=== PATIENT | female | born 1970 | race Caucasian/White ===

== ENCOUNTER 2021-04-08 11:14 | Inpatient (IN) | payer MEDICARE ==
[~2021-04-08] VITALS: Ht 157.5 cm; Wt 96.4 kg
[~2021-04-08 11:14] MED LIST: AMOXICILLIN875 MG PO; EXCEDRIN EXTRA1 EACH PO; MELOXICAM15 MG PO; METRONIDAZOLE500 MG PO; NORCO 5-325 TA1 EACH PO; NORVASC5 MG PO; TESSALON PERLE100 MG PO; VENTOLIN HFA IN18 GM INH
[2021-04-08 13:27] LABS: BASOPHIL 0.1 % (0-2); EOSINOPHIL 0.1 % (0-5); HCT 41.8 % (37.0-47.0); LYMPHOCYTE 31.9 % (15-48); MCH 30.4 pg (25.0-31.0); MCHC 33.5 g/dL (32.0-36.0); MCV 90.7 fL (78.0-100.0); MONOCYTE 7.6 % (0-12); MPV 9.2 fL (6.0-9.5); NEUTROPHIL 59.8 % (41-80); NRBC 0; PLT 334 K/uL (150-400); RBC 4.61 M/uL (4.20-5.40); WBC 7.9 K/uL (4.0-10.5)
[2021-04-08 13:45] LABS: BUN/CREAT RATIO (CALC) 20.3 RATIO; CREATININE 1.18 mg/dL (0.51-0.95); POTASSIUM 3.9 mmol/L (3.5-5.1)
[2021-04-09 07:36] LABS: BASOPHIL 0 % (0-2); EOSINOPHIL 0 % (0-5); HCT 40.2 % (37.0-47.0); HGB 13.3 g/dl (12.5-16.0); LYMPHOCYTE 30.2 % (15-48); MCHC 33.1 g/dL (32.0-36.0); MCV 90.7 fL (78.0-100.0); MONOCYTE 12.2 % (0-12); MPV 9.4 fL (6.0-9.5); NEUTROPHIL 56.6 % (41-80); NRBC 0.3; PLT 367 K/uL (150-400); RBC 4.43 M/uL (4.20-5.40); RDW 13.1 % (11.5-14.0); WBC 6.1 K/uL (4.0-10.5)
[2021-04-09 08:50] LABS: ALBUMIN 2.8 g/dL (3.4-5.0); BILIRUBIN - TOTAL 0.5 mg/dL (0.2-1.0); BUN/CREAT RATIO (CALC) 30.8 RATIO; C-REACTIVE PROTEIN 4.8 mg/dL (<=0.90); CREATININE 0.91 mg/dL (0.51-0.95); GLOBULIN (CALCULATION) 4.2 g/dL; POTASSIUM 4.4 mmol/L (3.5-5.1)
[2021-04-09] MEDS ORDERED: NORVASC5 MG PO (11:10)
[2021-04-09] MEDS ORDERED: VOLTAREN **OUT50 MG PO (11:11)
[2021-04-09] MEDS ORDERED: ATARAX25 MG PO (11:11)
[2021-04-09] MEDS ORDERED: ZOFRAN4 M1 PO (11:12)
[2021-04-09] MEDS ORDERED: PHENERGAN12.5 M1 PO (11:12)
[2021-04-10 05:21] LABS: BASOPHIL 0.1 % (0-2); EOSINOPHIL 0 % (0-5); HGB 12.1 g/dl (12.5-16.0); LYMPHOCYTE 33.8 % (15-48); MCH 29.9 pg (25.0-31.0); MCHC 32.7 g/dL (32.0-36.0); MCV 91.4 fL (78.0-100.0); MONOCYTE 11.2 % (0-12); MPV 9.2 fL (6.0-9.5); NEUTROPHIL 53.1 % (41-80); NRBC 0; PLT 410 K/uL (150-400); RBC 4.05 M/uL (4.20-5.40); RDW 13.1 % (11.5-14.0); WBC 9.4 K/uL (4.0-10.5)
[2021-04-10 06:15] LABS: ALBUMIN 2.5 g/dL (3.4-5.0); BILIRUBIN - TOTAL 0.4 mg/dL (0.2-1.0); C-REACTIVE PROTEIN 1.8 mg/dL (<=0.90); CREATININE 0.8 mg/dL (0.51-0.95); GLOBULIN (CALCULATION) 3.7 g/dL; POTASSIUM 4.3 mmol/L (3.5-5.1); TOTAL PROTEIN 6.2 g/dL (6.4-8.2)
[2021-04-11 05:14] LABS: BASOPHIL 0.2 % (0-2); EOSINOPHIL 0.3 & (0-5); HCT 36.8 % (37.0-47.0); HGB 12.1 g/dl (12.5-16.0); MCHC 32.9 g/dL (32.0-36.0); MCV 91.1 fL (78.0-100.0); MPV 9.1 fL (6.0-9.5); NEUTROPHIL 60.2 % (41-80); PLT 483 K/uL (150-400); RBC 4.04 M/uL (4.20-5.40); RDW 12.7 % (11.5-14.0); WBC 10.03 K/uL (4.0-10.5)
[2021-04-11 06:24] LABS: ALBUMIN 2.6 g/dL (3.4-5.0); BILIRUBIN - TOTAL 0.5 mg/dL (0.2-1.0); BUN/CREAT RATIO (CALC) 27.5 RATIO; C-REACTIVE PROTEIN 1.1 mg/dL (<=0.90); CREATININE 0.69 mg/dL (0.51-0.95); GLOBULIN (CALCULATION) 3.6 g/dL; POTASSIUM 3.9 mmol/L (3.5-5.1); TOTAL PROTEIN 6.2 g/dL (6.4-8.2)
[2021-04-12 07:13] LABS: BASOPHIL 0.2 % (0-2); EOSINOPHIL 0.1 & (0-5); HCT 38.1 % (37.0-47.0); HGB 12.7 g/dl (12.5-16.0); LYMPHOCYTE 18.1 % (15-48); MCHC 33.3 g/dL (32.0-36.0); MCV 89.9 fL (78.0-100.0); MONOCYTE 4.9 % (0-12); MPV 9.1 fL (6.0-9.5); PLT 566 K/uL (150-400); RBC 4.24 M/uL (4.20-5.40); RDW 12.5 % (11.5-14.0); WBC 9.96 K/uL (4.0-10.5)
[2021-04-12 08:20] LABS: ALBUMIN 2.7 g/dL (3.4-5.0); BILIRUBIN - TOTAL 0.4 mg/dL (0.2-1.0); BUN/CREAT RATIO (CALC) 26.6 RATIO; C-REACTIVE PROTEIN 2.2 mg/dL (<=0.90); CREATININE 0.64 mg/dL (0.51-0.95); GLOBULIN (CALCULATION) 3.7 g/dL; TOTAL PROTEIN 6.4 g/dL (6.4-8.2)
[2021-04-13 06:05] LABS: BASOPHIL 0.4 % (0-2); EOSINOPHIL 0 % (0-5); HCT 39.4 % (37.0-47.0); HGB 13.1 g/dl (12.5-16.0); LYMPHOCYTE 15.1 % (15-48); MCH 29.8 pg (25.0-31.0); MCHC 33.2 g/dL (32.0-36.0); MCV 89.7 fL (78.0-100.0); MPV 9.1 fL (6.0-9.5); NEUTROPHIL 74.1 % (41-80); NRBC 0; PLT 649 K/uL (150-400); RBC 4.39 M/uL (4.20-5.40); RDW 12.4 % (11.5-14.0); WBC 13.5 K/uL (4.0-10.5)
[2021-04-13 07:09] LABS: ALBUMIN 2.8 g/dL (3.4-5.0); BILIRUBIN - TOTAL 0.4 mg/dL (0.2-1.0); BUN/CREAT RATIO (CALC) 30.6 RATIO; C-REACTIVE PROTEIN 0.9 mg/dL (<=0.90); CREATININE 0.62 mg/dL (0.51-0.95); GLOBULIN (CALCULATION) 3.6 g/dL; POTASSIUM 4.3 mmol/L (3.5-5.1); TOTAL PROTEIN 6.4 g/dL (6.4-8.2)
[2021-04-15 07:04] LABS: BASOPHIL 0.4 % (0-2); EOSINOPHIL 0.2 % (0-5); HCT 38.9 % (37.0-47.0); HGB 12.9 g/dl (12.5-16.0); LYMPHOCYTE 17.8 % (15-48); MCH 30.1 pg (25.0-31.0); MCHC 33.2 g/dL (32.0-36.0); MCV 90.7 fL (78.0-100.0); MONOCYTE 6.6 % (0-12); MPV 8.8 fL (6.0-9.5); NEUTROPHIL 67.9 % (41-80); NRBC 0; PLT 739 K/uL (150-400); RBC 4.29 M/uL (4.20-5.40); RDW 12.7 % (11.5-14.0)
[2021-04-15 07:39] LABS: ALBUMIN 2.6 g/dL (3.4-5.0); ALKALINE PHOSHATASE 75 U/L (46-116); ALT 102 U/L (14-59); AST 73 U/L (15-37); BILIRUBIN - TOTAL 0.4 mg/dL (0.2-1.0); BUN 23 mg/dL (7-18); BUN/CREAT RATIO (CALC) 33.3 RATIO; CHLORIDE 107 mmol/L (98-107); CO2 (BICARBONATE) 27 mmol/L (21-32); CREATININE 0.69 mg/dL (0.51-0.95); GLOBULIN (CALCULATION) 3.5 g/dL; GLUCOSE 110 mg/dL (74-106); POTASSIUM 4.5 mmol/L (3.5-5.1); TOTAL PROTEIN 6.1 g/dL (6.4-8.2)
[2021-04-15 07:41] LABS: C-REACTIVE PROTEIN < 0.20 mg/dL (<=0.90)
[2021-04-16] MEDS ORDERED: MEDROL 4MG DOSEP4 MG PO (08:44)
--- NOTE | 2021-04-16 12:19 | NUR ---
04/16/21 A referral was made to [facility] for a rw and 02 at 3L per patient choice.
[2021-04-16] MEDS ORDERED: GUAIFEN-CODEINE10 ML PO (14:43)
[2021-04-16] MEDS ORDERED: MUCINEX 600MG600 MG PO (14:43)
[2021-04-16] MEDS ORDERED: TESSALON PERLE100 MG PO (14:43)
[2021-04-16] MEDS ORDERED: PROVENTIL HFA6.7 GM INH (14:43)
== END 2021-04-16 16:15 | disposition home or self-care (01) | DRG 177 ==
LOC: FER 11:14 → FMS 13:32
PROVIDERS: Allergy & Immunology Allergy; Nurse Practitioner Family; ADMIT Internal Medicine
PROC: 8E0ZXY6 Isolation (ICD-10-PCS; principal; 2021-04-08)
PROC: XW033E5 Introduction of Remdesivir Anti-infective into Peripheral Vein, Percutaneous Approach, New Technology Group 5 (ICD-10-PCS; 2021-04-08)
PROC: XW0DXM6 Introduction of Baricitinib into Mouth and Pharynx, External Approach, New Technology Group 6 (ICD-10-PCS; 2021-04-09)
DX: U07.1 COVID-19 (principal); J12.82 Pneumonia due to coronavirus disease 2019; J96.01 Acute respiratory failure with hypoxia; I10 Essential (primary) hypertension; M19.90 Unspecified osteoarthritis, unspecified site; Z98.890 Other specified postprocedural states; Z98.51 Tubal ligation status; Z79.899 Other long term (current) drug therapy
CPT/HCPCS: 36415; 36600; 71045; 80048; 80053; 82728; 82803; 84443; 85025; 86140; 93005; 94010; 94640; 94664; 94760; 94762; 97166; 97535; C9399; J1100; J1650; J2405; J7030; J7050; J8540

== ENCOUNTER 2021-11-30 14:39 | Emergency (ER) | payer MEDICARE ==
[~2021-11-30 14:39] MED LIST changes: +ATARAX25 MG PO; +BREO ELLIPTA 11 EACH INH; +FEOSOL325 MG PO; +GUAIFEN-CODEINE10 ML PO; +MEDROL 4MG DOSEP4 MG PO; +MUCINEX 600MG600 MG PO; +OXYCODONE-ACET1 EAC1 PO; +PHENERGAN12.5 M1 PO; +PROVENTIL HFA6.7 GM INH; +TRAZODONE HCL50 MG PO; +ULTRAM50 MG PO; +VOLTAREN **OUT50 MG PO; +XARELTO10 MG PO; +ZOFRAN4 M1 PO
== END 2021-11-30 17:11 | disposition home or self-care (01) ==
LOC: FER 14:39
DX: G89.18 Other acute postprocedural pain (principal); M25.561 Pain in right knee; I10 Essential (primary) hypertension; Z96.651 Presence of right artificial knee joint
CPT/HCPCS: 73560; 93971